=== PATIENT | male | born 1960 | race Caucasian/White ===

== ENCOUNTER → 2016-07-20 | Outpatient (CLI) | payer OTHER ==
[~2016-07-20] MED LIST: NS 100 ML IV 100 ML IV ONE
--- NOTE | 2016-07-20 11:49 | CT ---
HISTORY: Shortness of breath, pulmonary nodules Study: CT chest with contrast Comparison: Cardiac calcium scoring exam 07/17/2016 Technique: Multiple axial images of the chest were obtained from the thoracic inlet to the upper abd omen after the administration of IV contrast. Dose reduction techniques including Automated Exposur e Control (AEC) and adjustment of mA and kV were utilized. Findings: No vascular abnormality is identified. Normal appearance of the heart and pericardium. The aorta ap pears normal in course and caliber. Again noted in the left lower lobe are several small noncalcifie d pulmonary nodules. The largest nodule seen on today's study measures approximately 5 mm (axial steve ge 54). There are some ill-defined ground-glass changes also seen in the left lower lobe that appear improved when compared to prior study, suggesting possible inflammatory etiology. The right lung is clear. No acute airspace disease, effusion or pneumothorax. The airways are patent. The soft tissues and osseous structures appear intact. The visualized portions of the upper abdomen are grossly unremarkable. IMPRESSION: 1. Stable small noncalcified pulmonary nodules in the left lower lobe, the largest on today's study measuring approximately [address] followup in 6 months is recommended to document stability. 2. Small area of ill-defined ground-glass opacity in the left lower lobe now appears improved when c ompared to prior study suggesting possible resolving inflammation. Reported By:
== END ==
LOC: RAD 09:08
PROVIDERS: ATTEND Nurse Practitioner Family
DX: R06.02 Shortness of breath (principal); R91.8 Other nonspecific abnormal finding of lung field
CPT/HCPCS: 71260; A4222

== ENCOUNTER → 2017-04-25 | Outpatient (CLI) | payer OTHER ==
--- NOTE | 2017-04-27 10:23 | CT ---
HISTORY: Follow-up nodules Study: CT the chest Comparison: July 20, 2016 Technique: Serial axial images were obtained from the thoracic inlet to the upper abdomen without inf usion of IV contrast. Dose reduction techniques including automated exposure control (AEC) and adjust ment of mA and kV were utilized. Findings: A few scattered subcentimeter lymph nodes are seen within the mediastinum. There is questionable mild pericardial thickening. Atherosclerotic changes are seen within the visualized coronary arteries and aorta. Evaluation of the mediastinum, hilar regions, and vascular structures is limited without IV t he contrast. A few small subcentimeter nodules are again seen within the left lower lobe. The largest nodule is on image 57 of series 4 and again measures 5 mm in size. Otherwise no CT evidence of focal consolidation, pneumothorax, or pleural effusion is identified. IMPRESSION: Left lower lobe pulmonary nodules which have not significantly changed since prior study as noted abo ve. Follow-up exam may be performed in 6-12 months to document continued stability. Reported By:
== END ==
LOC: RAD 08:08
PROVIDERS: ATTEND Internal Medicine
DX: R91.8 Other nonspecific abnormal finding of lung field (principal)
CPT/HCPCS: 71250

== ENCOUNTER → 2017-07-03 | Outpatient (CLI) | payer OTHER ==
--- NOTE | 2017-07-03 14:15 | RAD ---
Examination: X-rays of the left shoulder. Clinical history: Neck pain radiating down left shoulder. Technique: Three views of the left shoulder were obtained. Comparison: None available. Findings: No acute fracture, dislocation, or destructive bony lesion is noted. No arthropathy is noted at the left shoulder. No soft tissue abnormality is noted. Impression: 1. Negative x-rays of the left shoulder. Reported By:
--- NOTE | 2017-07-03 16:14 | RAD ---
Examination: X-rays of the cervical spine. Clinical History: Back pain radiating down left shoulder. Technique: Five views of the cervical spine were obtained. Comparison: None available. Findings: There is mild loss of the normal cervical lordosis. There is narrowing of the C5-C6 and C6-C7 intervertebral disc spaces, suggestive of disc degenerative changes. Minor vertebral body osteophytosis is noted at the C5-C6 and C6-C7 levels. Uncovertebral spurring is seen at the C6-C7 level, resulting in mild right-sided bony neural foraminal narrowing. No acute fracture, dislocation or destructive bony lesion is noted. No soft tissue abnormality is noted. Impression: 1. Cervical spondylosis, as described above. Reported By:
== END ==
LOC: RAD 12:11
PROVIDERS: ATTEND Nurse Practitioner Family
DX: M25.512 Pain in left shoulder (principal); M54.12 Radiculopathy, cervical region
CPT/HCPCS: 72050; 73030